=== PATIENT | male | born 1970 | race Caucasian/White ===

== ENCOUNTER 2018-05-01 07:47 | Day surgery (SDC) | payer OTHER ==
[~2018-05-01 07:47] MED LIST: LABETALOL HCL 20MG INJ; NALOXONE (0.4 MG/ML) INJ IV
[2018-05-01] MEDS ORDERED: SOD CHLORIDE 0.9% 1,000 ML IV (09:00)
[2018-05-01] MEDS ORDERED: PROPOFOL 20 ML ×2 (10:20→11:51)
[2018-05-01] MEDS ORDERED: FENTAnyl 50 MCG/ML VIAL (10:20)
[2018-05-01] MEDS ORDERED: LIDOCAINE 2% (SDV) 5 ML INJ ×2 (10:20→11:51)
[2018-05-01] MEDS ORDERED: NEOSTIGMINE 3 MG/3 ML SYRINGE ×2 (10:20→11:51)
[2018-05-01] MEDS ORDERED: ROCURONIUM 50 MG INJ ×2 (10:20→11:51)
[2018-05-01] MEDS ORDERED: GLYCOPYRROLATE 0.4 MG INJ ×2 (10:20→11:51)
[2018-05-01] MEDS ORDERED: MIDAZOLAM 1 MG/ML 2 ML INJ ×2 (10:20→11:51)
[2018-05-01] MEDS ORDERED: DEXAMETHASONE 4 MG/ML 1 ML INJ (10:21)
[2018-05-01] MEDS ORDERED: ONDANSETRON 4 MG INJ (10:21)
[2018-05-01] MEDS ORDERED: morphine 2 MG INJ IV ×2 (12:00→14:00)
[2018-05-01] MEDS ORDERED: ONDANSETRON 4 MG INJ IV ×2 (12:00→14:00)
[2018-05-01] MEDS ORDERED: HYDROCODONE/APAP (5/325) TAB PO (12:00)
[2018-05-01] MEDS ORDERED: OCULAR LUBRICANT 3.5 GM OPH OINT (12:11)
[2018-05-01] MEDS: LIDOCAINE 1%/EPI 30 ML INJ (12:21)
[2018-05-01] MEDS ORDERED: BACITRACIN/POLYMYXIN 28.35 GM OINT TOP (13:07)
[2018-05-01] MEDS ORDERED: OXYCODONE/ACETAMINOPHEN (5/325) TAB PO (14:00)
== END 2018-05-01 14:55 | disposition home or self-care (01) ==
LOC: SDS 07:47
DX: C44.119 Basal cell carcinoma of skin of left eyelid, including canthus (principal); L57.8 Other skin changes due to chronic exposure to nonionizing radiation
CPT/HCPCS: 15260; 88307; 88331